=== PATIENT | male | born 1955 | race Caucasian/White ===

== ENCOUNTER 2016-12-04 11:13 | Emergency (ER) | payer OTHER ==
--- NOTE | 2016-12-04 12:28 | ER Document Report ---
ED Medical Screen (RME) - General Chief Complaint: Shortness Of Breath Stated Complaint: shortness of breath Time Seen by Provider: 12/04/16 12:27 Mode of Arrival: Ambulatory Information source: Patient Notes: Patient reports some shortness of breath and inability to lie flat. Patient states he is slightly short of breath when sitting up and it is much worse when lying flat. Patient states he has a history of CHF. TRAVEL OUTSIDE OF THE [place] IN LAST 30 DAYS: No - Related Data Allergies/Adverse Reactions: No Known Drug Allergies Allergy (Verified 12/04/16 11:31) Past Medical History - General Information source: [facility] Records - Social History Chew tobacco use (# tins/day): No Frequency of alcohol use: None Drug Abuse: None - Past Medical History Cardiac Medical History: Reports: Hx Coronary Artery Disease, Hx Hypertension Denies: Hx Heart Attack Pulmonary Medical History: Reports: Hx Asthma, Hx COPD Denies: Hx Bronchitis, Hx Pneumonia Neurological Medical History: Denies: Hx Cerebrovascular Accident, Hx Seizures Renal/ Medical History: Denies: Hx Peritoneal Dialysis Musculoskeltal Medical History: Denies Hx Arthritis - Immunizations Hx Diphtheria, Pertussis, Tetanus Vaccination: No History of Influenza Vaccine for 11/2016 - 04/2017 Season: No Review of Systems - Review of Systems Constitutional: See HPI, Fever Respiratory: See HPI, Cough, Short of breath Physical Exam - Vital signs Vitals: Temp Pulse Resp BP Pulse Ox 98.0 F 90 30 H 104/71 90 L 12/04/16 11:32 12/04/16 11:32 12/04/16 11:32 12/04/16 11:32 12/04/16 11:32 - Notes Notes: Physical Exam: General: Alert, appears well. HEENT: Normocephalic. Atraumatic. PERRLA. Extraocular movements intact. Oropharynx clear. Neck: Supple. Respiratory: Wheezing and rhonchi bilaterally. no respiratory distress. Abdominal: Normal Inspection. No distension. Extremities: Moves all four extremities. Neurological: Cranial nerves II-XII grossly intact bilaterally. Normal cognition. AAOx4. Normal speech. Psychological: Normal affect. Normal Mood. Skin: Warm. Dry. Normal color. Course - Vital Signs Vital signs: Temp Pulse Resp BP Pulse Ox 98.0 F 90 30 H 104/71 90 L 12/04/16 11:32 12/04/16 11:32 12/04/16 11:32 12/04/16 11:32 12/04/16 11:32 - Laboratory Result Diagrams: 12/04/16 12:40 12/04/16 12:40 Laboratory results interpreted by me: 12/04/16 12/04/16 12/04/16 12:40 12:40 12:40 RBC 4.20 L Hgb 12.3 L Hct 36.6 L Sodium 148.1 H Chloride 112 H Glucose 160 H AST 14 L NT-Pro-B Natriuret Pep 3540 H Scribe Documentation - Scribe Written by Patti:: Patti Rivas, 12/04/2016 [id number] acting as scribe for :: Kimberly
[2016-12-04 12:57] LABS: ABSOLUTE BASOPHILS # (AUTO) 0.1 10^3/uL (0.0-0.2); ABSOLUTE EOSINOPHILS # (AUTO) 0.1 10^3/uL (0.0-0.6); ABSOLUTE LYMPHOCYTES (AUTO) 2.4 10^3/uL (0.5-4.7); ABSOLUTE MONOCYTES (AUTO) 0.5 10^3/uL (0.1-1.4); ABSOLUTE NEUT (AUTO) 3.6 10^3/uL (1.7-8.2); BASOPHILS % (AUTO) 0.8 % (0-2); EOSINOPHILS % (AUTO) 1.6 % (0-6); HEMATOCRIT 36.6 % (37.9-51.0); HEMOGLOBIN 12.3 g/dL (13.5-17.0); HGB HCT DIFFERENCE 0.3; LYMPHOCYTES % (AUTO) 36.1 % (13-45); MEAN CORPUSCULAR HEMOGLOBIN 29.3 pg (27.0-33.4); MEAN CORPUSCULAR HGB CONC 33.7 g/dL (32.0-36.0); MEAN CORPUSCULAR VOLUME 87 fl (80-97); SEGMENTED NEUTROPHILS % (AUTO) 53.5 % (42-78); WHITE BLOOD COUNT 6.8 10^3/uL (4.0-10.5)
--- NOTE | 2016-12-04 13:09 | RADIOLOGY REPORT (SQ) ---
EXAM DESCRIPTION: CHEST PA/LAT COMPLETED DATE/TIME: 12/04/2016 12:47 pm REASON FOR STUDY: short of breath COMPARISON: 11/13/2015 EXAM PARAMETERS: NUMBER OF VIEWS: two views TECHNIQUE: Digital Frontal and Lateral radiographic views of the chest acquired. RADIATION DOSE: NA LIMITATIONS: none FINDINGS: LUNGS AND PLEURA: There appear to be mild chronic interstitial changes. There is slightly increased opacification in the right lung base. MEDIASTINUM AND HILAR STRUCTURES: No masses or contour abnormalities. HEART AND VASCULAR STRUCTURES: Heart size is borderline. There is no failure. BONES: No acute findings. HARDWARE: None in the chest. OTHER: No other significant finding. IMPRESSION: Borderline cardiomegaly with chronic lung changes. Cannot exclude a right lower lobe pn eumonia. TECHNICAL DOCUMENTATION: JOB ID: [id number] [employer]- All Rights Reserved
[2016-12-04 13:11] LABS: ALANINE AMINOTRANSFERASE 22 U/L (21-72); ALBUMIN 3.7 g/dL (3.5-5.0); ALKALINE PHOSPHATASE 62 U/L (38-126); ANION GAP 13 (5-19); ASPARTATE AMINO TRANSFERASE 14 U/L (17-59); BILIRUBIN,DIRECT 0.3 mg/dL (0.0-0.4); BILIRUBIN,TOTAL 0.4 mg/dL (0.2-1.3); BLOOD UREA NITROGEN 12 mg/dL (7-20); CALCIUM 9.3 mg/dL (8.4-10.2); CARBON DIOXIDE 23 mmol/L (22-30); CHLORIDE 112 mmol/L (98-107); CREATINE KINASE 82 U/L (55-170); GLUCOSE 160 mg/dL (75-110); SODIUM 148.1 mmol/L (137-145); TOTAL PROTEIN 6.4 g/dL (6.3-8.2)
[2016-12-04 13:24] LABS: CREATINE KINASE MB 2.32 ng/mL (<4.55)
[2016-12-04] MEDS ORDERED: ALBUTEROL SULFATE 0.083% NEB 2.5 MG/3 ML AMPUL NEB ONE (15:15)
[2016-12-04] MEDS ORDERED: ASPIRIN 81 MG TABLET, CHEWABLE PO ONE (15:15)
--- NOTE | 2016-12-04 15:21 | ER Document Report ---
ED Cardiac - General Chief Complaint: Shortness Of Breath Stated Complaint: shortness of breath Time Seen by Provider: 12/04/16 12:27 Mode of Arrival: Ambulatory TRAVEL OUTSIDE OF THE [place] IN LAST 30 DAYS: No - HPI Patient complains to provider of: Chest pain, Chest tightness, Shortness of breath Was the onset of pain: Gradual Is the pain a: New problem Chest pain location: Substernal Quality of pain: Heaviness, Tightness Severity now: None Severity at worst: Moderate Chest pain precipitating factors: At Rest Cardiac risk factors: Hypertension, Smoker, Hx CHF Associated symptoms: Shortness of breath Exacerbated by: Lying flat Relieved by: Nothing Similar symptoms previously: Yes Notes: Patient is a 61-year-old male presenting to the emergency room complaining of one-week history of worsening shortness of breath with productive cough, over the past 24 hours he has developed chest pain and tightness as well, states he has a history of congestive heart failure in the past with similar symptoms and is concerned that his lungs are full of fluid, patient does have a documented history of congestive heart failure with an ejection fraction of 40%, COPD, bronchitis, hypertension and diabetes, he is a smoker, no known history of NV in the past - Related Data Allergies/Adverse Reactions: No Known Drug Allergies Allergy (Verified 12/04/16 11:31) Past Medical History - General Information source: Patient, [facility] Records - Social History Smoking Status: Current Every Day Smoker Chew tobacco use (# tins/day): No Frequency of alcohol use: None Drug Abuse: None Family History: Reviewed & Not Pertinent, CAD, COPD, Malignancy Patient has suicidal ideation: No Patient has homicidal ideation: No - Past Medical History Cardiac Medical History: Reports: Hx Coronary Artery Disease, Hx Hypertension Denies: Hx Heart Attack Pulmonary Medical History: Reports: Hx Asthma, Hx COPD Denies: Hx Bronchitis, Hx Pneumonia Neurological Medical History: Denies: Hx Cerebrovascular Accident, Hx Seizures Renal/ Medical History: Denies: Hx Peritoneal Dialysis Musculoskeltal Medical History: Denies Hx Arthritis - Immunizations Hx Diphtheria, Pertussis, Tetanus Vaccination: No Review of Systems - Review of Systems Constitutional: No symptoms reported EENT: No symptoms reported Cardiovascular: See HPI Respiratory: See HPI Gastrointestinal: No symptoms reported Genitourinary: No symptoms reported Male Genitourinary: No symptoms reported Musculoskeletal: No symptoms reported Skin: No symptoms reported Hematologic/Lymphatic: No symptoms reported Neurological/Psychological: No symptoms reported -: Yes All other systems reviewed and negative Physical Exam - Vital signs Vitals: Temp Pulse Resp BP Pulse Ox 98.0 F 90 30 H 104/71 90 L 12/04/16 11:32 12/04/16 11:32 12/04/16 11:32 12/04/16 11:32 12/04/16 11:32 Interpretation: Hypoxic, Tachypneic - General General appearance: Alert In distress: Mild - HEENT Head: Normocephalic, Atraumatic Eyes: Normal Conjunctiva: Normal Extraocular movements intact: Yes Eyelashes: Normal Pupils: PERRL - Respiratory Respiratory status: Tachypnea Chest status: Nontender Breath sounds: Productive cough, Wheezing Chest palpation: Normal - Cardiovascular Rhythm: Regular Heart sounds: Normal auscultation Murmur: No - Abdominal Inspection: Normal Distension: No distension Bowel sounds: Normal Tenderness: Nontender Organomegaly: No organomegaly - Back Back: Normal, Nontender - Extremities General upper extremity: Normal inspection, Nontender, Normal color, Normal ROM , Normal temperature General lower extremity: Normal inspection, Nontender, Edema - trace, Normal color, Normal ROM, Normal temperature. No: Oxana's sign - Neurological Neuro grossly intact: Yes Cognition: Normal Orientation: AAOx4 [place] Coma Scale Eye Opening: Spontaneous [place] Coma Scale Verbal: Oriented [place] Coma Scale Motor: Obeys Commands [place] Coma Scale Total: 15 Speech: Normal Motor strength normal: LUE, RUE, LLE, RLE Sensory: Normal - Psychological Associated symptoms: Normal affect, Normal mood - Skin Skin Temperature: Warm Skin Moisture: Dry Skin Color: Normal Course - Re-evaluation Re-evalutation: 12/04/16 15:22 A call was placed to [facility], spoke with Ryan in the transfer center and requested callback from appropriate physician for transfer of patient 12/04/16 15:49 patient discussed with hospitalist at [facility], requests a CTA to rule out PE prior to transferring patient to their facility although he does accept patient for transfer would like an update prior to him actually being transported, transfer center states they are on slight bed delay but do expect to bed later this evening 12/04/16 20:06 Patient resting comfortably in bedside chair, stable vital signs, denies chest pain or difficulty breathing at present time, his only complaint is that he wants to get some sleep stating that he has not slept for the past 2 days, EMS crew is in the department to transport patient to tertiary care center, patient remained stable for transport - Vital Signs Vital signs: Temp Pulse Resp BP Pulse Ox 98.0 F 90 24 H 108/66 95 12/04/16 11:32 12/04/16 11:32 12/04/16 18:34 12/04/16 19:00 12/04/16 19:01 - Laboratory Result Diagrams: 12/04/16 12:40 12/04/16 12:40 Laboratory results interpreted by me: 12/04/16 12/04/16 12/04/16 12:40 12:40 12:40 RBC 4.20 L Hgb 12.3 L Hct 36.6 L Sodium 148.1 H Chloride 112 H Glucose 160 H AST 14 L NT-Pro-B Natriuret Pep 3540 H - Diagnostic Test Radiology reviewed: Image reviewed, Reports reviewed - EKG Interpretation by Me EKG shows normal: Sinus rhythm Rate: Normal Rhythm: NSR When compared to previous EKG there are: No significant change Discharge - Discharge Clinical Impression: NSTEMI (non-ST elevated myocardial infarction) CHF, acute Qualifiers: Congestive heart failure type: systolic Qualified Code(s): I50.21 - Acute systolic (congestive) heart failure COPD (chronic obstructive pulmonary disease) Qualifiers: COPD type: COPD with acute exacerbation Qualified Code(s): J44.1 - Chronic obstructive pulmonary disease with (acute) exacerbation Condition: Stable Disposition: [facility]
--- NOTE | 2016-12-04 16:56 | RADIOLOGY REPORT (SQ) ---
EXAM DESCRIPTION: CTA CHEST COMPLETED DATE/TIME: 12/04/2016 4:20 pm REASON FOR STUDY: SOB COMPARISON: None. TECHNIQUE: CT scan of the chest performed using helical scanning technique with dynamic intravenous contrast injection. Images reviewed with lung, soft tissue and bone windows. Reconstructed coronal and sagittal MPR images reviewed. Additional 3 dimensional post-processing performed to develop Maximal Intensity Projection images (IA P). All images stored on PACS. All CT scanners at this facility use dose modulation, iterative reconstruction, and/or weight based d osing when appropriate to reduce radiation dose to as low as reasonably achievable (ALARA). [facility]: Dose Right [facility]: CareDose [facility]: Dose Right [facility]: Teradose 4D [facility]: Moseo ([email or web address]) CONTRAST TYPE AND DOSE: contrast/concentration: Isovue 370.00 mg/ml; Total Contrast Delivered: 75.0 ml; Total Saline Delivered: 40.0 ml Contrast bolus optimized for the pulmonary arteries. Not diagnostic for the aorta. RENAL FUNCTION: Creatinine 0.6 BUN 12 RADIATION DOSE: Up-to-date CT equipment and radiation dose reduction techniques were employed. CTDIv ol: 19.8 - 21.4 mGy. DLP: 820 mGy-cm. . LIMITATIONS: None. FINDINGS: LUNGS AND PLEURA: There is a small right pleural effusion and minimal left pleural effusio n. Mild ground-glass infiltrates. AORTA AND GREAT VESSELS: No aneurysm. Contrast bolus not optimized for the aorta. HEART: No pericardial effusion. Moderate to marked coronary artery calcifications. PULMONARY ARTERIES: No emboli visualized in the main pulmonary arteries or the segmental branches. HILAR AND MEDIASTINAL STRUCTURES: No identified masses or abnormal nodes. HARDWARE: None in the chest. UPPER ABDOMEN: There is mural thrombus in the infrarenal abdominal aorta with a very narrow residual lumen as seen on the last couple of images. The celiac and SMA and renal arteries are perfused. THYROID AND OTHER SOFT TISSUES: No masses. No adenopathy. BONES: No acute or significant finding. 3D MIPS: Confirm above findings. OTHER: No other significant finding. IMPRESSION: 1. There is no evidence of pulmonary emboli. 2. There are mild ground-glass infiltrates may suggest some degree of interstitial edema. 3. There is mural thrombus in the infrarenal abdominal aorta resulting in a narrow residual lumen. COMMENT: Quality ID # [id number]: Final reports with documentation of one or more dose reduction techniques (e.g., Automated exposure control, adjustment of the mA and/or kV according to patient size, use of iterative reconstruction technique) TECHNICAL DOCUMENTATION: JOB ID: [id number] [employer]- All Rights Reserved
--- NOTE | 2016-12-04 18:22 | EKG REPORT ---
SEVERITY:- ABNORMAL ECG - SINUS RHYTHM VENTRICULAR PREMATURE COMPLEX PROBABLE LEFT ATRIAL ABNORMALITY INFERIOR INFARCT, AGE INDETERMINATE CONSIDER ANTERIOR INFARCT LATERAL LEADS ARE ALSO INVOLVED BORDERLINE PROLONGED QT INTERVAL : Confirmed by: Juve Peace MD 04-Dec-2016 18:21:55
--- NOTE | 2016-12-04 18:23 | EKG REPORT ---
SEVERITY:- ABNORMAL ECG - SINUS RHYTHM LEFT ATRIAL ABNORMALITY INFERIOR INFARCT, AGE INDETERMINATE CONSIDER ANTERIOR INFARCT LATERAL LEADS ARE ALSO INVOLVED BORDERLINE PROLONGED QT INTERVAL : Confirmed by: Juve Peace MD 04-Dec-2016 18:22:20
[2016-12-04 20:13] VITALS: BP 113/76
[2016-12-05 16:12] LABS: TROPONIN I 0.359 ng/mL
== END 2016-12-04 20:19 | disposition short-term general hospital (02) ==
LOC: ER 11:13
DX: I21.4 Non-ST elevation (NSTEMI) myocardial infarction (principal); I50.21 Acute systolic (congestive) heart failure; J44.1 Chronic obstructive pulmonary disease with (acute) exacerbation; F17.200 Nicotine dependence, unspecified, uncomplicated; I25.10 Atherosclerotic heart disease of native coronary artery without angina pectoris; I10 Essential (primary) hypertension
CPT/HCPCS: 36415; 71020; 71275; 80053; 82550; 82553; 83880; 84484; 85025; 93005; 93010; 94640; 99285